=== PATIENT | female | born 1945 | race Hispanic/Latino ===

== ENCOUNTER → 2018-11-06 | Outpatient (CLI) | payer OTHER | END | disposition home or self-care (01) | LOC: RAH 09:40 | PROVIDERS: ATTEND Family Medicine | DX: Z12.31 Encounter for screening mammogram for malignant neoplasm of breast (principal) | CPT/HCPCS: 77067 ==

== ENCOUNTER → 2019-11-09 | Outpatient (CLI) | payer OTHER | END | disposition home or self-care (01) | LOC: RAH 13:28 | PROVIDERS: ATTEND Family Medicine | DX: Z12.31 Encounter for screening mammogram for malignant neoplasm of breast (principal) | CPT/HCPCS: 77067 ==

== ENCOUNTER → 2021-03-12 | Outpatient (CLI) | payer OTHER | END | disposition home or self-care (01) | LOC: RAH 10:48 | PROVIDERS: ATTEND Family Medicine | DX: Z12.31 Encounter for screening mammogram for malignant neoplasm of breast (principal) | CPT/HCPCS: 77067 ==

== ENCOUNTER 2024-12-31 13:52 | Emergency (ER) | payer OTHER ==
[~2024-12-31] VITALS: Ht 154.9 cm; Wt 66.2 kg
[2024-12-31] MEDS: ketOROlac 15MG/ML VIAL (15MG/ML) IM ONE (15:00)
--- NOTE | 2024-12-31 16:23 | HMCIMG ---
FOOT COMP 3+VWS LT HISTORY: Crush injury COMPARISON: None TECHNIQUE: 3 images of left foot were obtained. FINDINGS: Comminuted fractures are seen of the first distal phalanx. Soft tissue swelling is seen. No dislocation is seen. There is a small calcaneal spur. Degenerative changes are seen. IMPRESSION: 1. Findings as described above.
--- NOTE | 2024-12-31 17:07 | ERN ---
ED Note History of Present Illness Stated Complaint: SENT BY Chief Complaint: Toe Pain/Injury Time Seen by MD: 15:08 Time Seen by Midlevel: 15:08 Dictation: The patient is a 79-year-old female who presents to the emergency department with complaints of left big toe swelling, blistering, pain after a block fell on her yesterday. Denies any other injuries. Allergies: Coded Allergies: No Known Allergies (Unverified Allergy, Unknown, 12/31/24) Past Medical History Past Medical History: Other Additional Past Medical Hx: CHRONIC RT SHOULDER PAIN, INCONTINENCE Surgical History: Other Surgical History Other: NECK CYST, BUNIONECTOMY RN Note Reviewed/Agreed w/PFSH: Yes Review of System Dictation Constitutional: Negative for fever,chills, and weight loss Eyes: Negative for injury, pain,redness, and discharge ENT: Negative for injury,pain or swelling Cardiovascular: Negative for chest pain, palpitations, and edema Respiratory: Negative for shortness of breath, cough, and wheezing, Abdomen/GI: Negative for abdominal pain, nausea, vomiting, diarrhea, and constipation Back: Negative for injury and pain : Negative for injury, bleeding and discharge MS/Extremity: Negative for injury and deformity positive for left great toe swelling Skin: Negative for rash, and discoloration Neuro: Negative for headache, weakness, numbness, tingling, and seizure Psych: Negative for suicide ideation, homicidal ideation, and hallucinations Initial Vital Sign VS Vital Signs Date Time Temp Pulse Resp B/P (MAP) Pulse Ox O2 Delivery O2 Flow Rate FiO2 12/31/24 14:01 99.0 87 16 176/81 98 Room Air 0 12/31/24 17:08 21 Physical Exam Dictation Vital Signs reviewed General Appearance: Alert, oriented x 3, no acute distress, well developed, nourished. Head and Face: non-traumatic. Eyes: PERRL, pink conjunctivas, eyelid no trauma, anterior chamber with arcus senilis. Ears: Pinnas intact and no signs of trauma or erythema ear canals clear and no discharge TM no erythema Nose: No discharge, no bleeding. Oropharynx: Mouth normal, tongue pink. pharynx clear,no erythema, tonsils no exudates, no abscesses noted, mucous membrane moist Neck: Supple, non-tender, no thyromegaly, no masses, no JVD, no bruits Breast:Deferred Chest:No tenderness, no crepitus, no paradoxical movement, no retractions Lungs:Clear, well-ventilated, symmetric, no rales, no wheezing, no rhonchi, no stridor, good breath sounds bilaterally Heart: Regular rate, regular rhythm, no murmur, no gallops Vascular: no peripheral edema, Abdomen: Soft, positive bowel sounds, nondistended, no guarding, nontender, no rebound, no masses no hepatomegaly, no splenomegaly, no Madrigal's sign, no hernias. Rectal: Deferred Genital: Deferred Neurological: Normal speech, motor function intact, sensory function intact Musculoskeletal: Neck nontender, full range of motion, back nontender, full range of motion, Extremities: nontender, full range of motion , left 1st toe swelling, blister noted, no obvious open wounds, no drainage, cap refill less than 2 seconds Skin: Color pink, dry, no turgor, no rash, no lacerations, no abrasions, no contusions. Lymphatic: Deferred Results (Laboratory/Radiology) Laboratory/Radiology REASON: injury ORDERING PHYSICIAN: CICI POTTER MD PROCEDURE: FT 3VW LT - FOOT COMP 3+VWS LT FOOT COMP 3+VWS LT HISTORY: Crush injury COMPARISON: None TECHNIQUE: 3 images of left foot were obtained. FINDINGS: Comminuted fractures are seen of the first distal phalanx. Soft tissue swelling is seen. No dislocation is seen. There is a small calcaneal spur. Degenerative changes are seen. IMPRESSION: 1. Findings as described above. Labs Reviewed?: Yes ED Course ED Course Orders Procedure Category Date Status Time Ketorolac PHA 12/31/24 Complete Tromethamine 15mg/Ml 15:00 Foot Comp 3+Vws Lt RAD 12/31/24 Resulted 14:59 Current Medications Medications (Trade) Dose Ordered Sig/Danitza Route PRN Reason Start Time Stop Time Status Last Admin Dose Admin Ketorolac Tromethamine (toRADol) 15 mg ONCE ONCE IM 12/31/24 15:00 12/31/24 15:01 DC 12/31/24 15:00 Vital Signs Date Time Temp Pulse Resp B/P (MAP) Pulse Ox O2 Delivery O2 Flow Rate FiO2 12/31/24 17:08 98.2 83 17 160/64 98 Room Air* 0 21 12/31/24 14:01 99.0 87 16 176/81 98 Room Air 0 Medical Decision Making MDM The patient is a 79-year-old female who presents to the emergency department with complaints of left big toe swelling, blistering, pain after a block fell on her yesterday. Denies any other injuries. X-ray showed comminuted fractures are seen in the distal pharynx, soft tissue swelling is seen. Patient with a blister forming but due to underlying fracture we will not attempt to ruptured to provide additional protection. Patient instructed to follow up with the orthopedic. Patient agrees with discharge planning. Orthopedic boot applied. Differential diagnosis: Toe contusion, toe fracture, to dislocation Need for hospitalization: Patient does not meet criteria for hospitalization. There are no social concerns with this patient. DX & DISP Disposition: Discharge Departure Impression: Primary Impression: Fracture of left great toe Condition: Stable Additional Instructions: Please follow up with the Orthopedic as soon as possible. Follow up with the your primary doctor as well. Return if symptoms worsen. FOLLOW-UP WITH PRIMARY CARE PROVIDER IN 1 TO 2 DAYS. TAKE MEDICATIONS DIRECTED HERE IN THE EMERGENCY ROOM. OKAY TO CONTINUE HOME MEDICATIONS UNLESS OTHERWISE DISCUSSED DURING YOUR VISIT IN THE EMERGENCY ROOM TODAY. RETURN TO YOUR NEAREST EMERGENCY ROOM IF SYMPTOMS WORSEN OR IF THERE IS NO IMPROVEMENT. CALL 911 IF YOU NEED IMMEDIATE ASSISTANCE. TAKE TYLENOL OR MOTRIN [id number] NEEDED AND IF NO CONTRAINDICATIONS ARE PRESENT. INCREASE ORAL HYDRATION. A WOUND CULTURE OR URINE CULTURE WAS ORDERED HERE IN THE EMERGENCY ROOM DEPARTMENT PLEASE FOLLOW-UP WITH PRIMARY CARE PROVIDER AND ADVISE THEM TO GET REPEAT PORTS FROM OUR FACILITY. IF YOU HAD ANY VALENTINO WRAP/SPLINTS THAT WERE APPLIED HERE, PLEASE DO NOT REMOVE THEM UNTIL YOU SEE YOUR PRIMARY CARE OR SPECIALTY. Referrals: FELICIANO VALDEZ MD (PCP) ALEXI ARAIZA MD Time of Disposition: 17:22 I have examined patient, & reviewed all documents, & agreed W/ the Diagnosis, and Plan RUPA CHATMAN Dec 31, 2024 17:07
[2024-12-31 17:08] VITALS: BP 160/64; PULSE 83; RESP 17; TEMP 98.3; O2SAT 98
--- NOTE | 2024-12-31 17:19 | NUR ---
APPLIED FOOT BOOT FOR FX PURPOSE
== END 2024-12-31 17:52 | disposition home or self-care (01) ==
LOC: EDH 13:52
DX: S92.422A Displaced fracture of distal phalanx of left great toe, initial encounter for closed fracture (principal); W23.0XXA Caught, crushed, jammed, or pinched between moving objects, initial encounter; Y93.89 Activity, other specified; Y92.89 Other specified places as the place of occurrence of the external cause; Y99.8 Other external cause status
CPT/HCPCS: 99284; 73630; 96372; J1885